=== PATIENT | male | born 1995 | race Caucasian/White ===

== ENCOUNTER 2021-03-01 14:27 | Emergency (ER) | payer OTHER ==
[2021-03-01 17:21] LABS: BASOPHIL 0.2 % (0-2); EOSINOPHIL 0.7 % (0-5); HCT 46.9 % (42.0-52.0); HGB 15.9 g/dl (13.2-18.0); LYMPHOCYTE 23.7 % (15-48); MCH 27.9 pg (25.0-31.0); MCHC 33.9 g/dL (32.0-36.0); MCV 82.4 fL (78.0-100.0); MONOCYTE 5.3 % (0-12); MPV 9.8 fL (6.0-9.5); NEUTROPHIL 69.6 % (41-80); NRBC 0; PLT 195 K/uL (150-400); RBC 5.69 M/uL (4.70-6.00); RDW 12.5 % (11.5-14.0); WBC 8.8 K/uL (4.0-10.5)
[2021-03-01 17:38] LABS: ALBUMIN 4.9 g/dL (3.4-5.0); BILIRUBIN - TOTAL 0.7 mg/dL (0.2-1.0); BUN/CREAT RATIO (CALC) 9.2 RATIO; CREATININE 0.87 mg/dL (0.67-1.17); POTASSIUM 3.7 mmol/L (3.5-5.1); TOTAL PROTEIN 7.9 g/dL (6.4-8.2)
[2021-03-01] MEDS ORDERED: NAPROXEN500 MG PO (18:32)
== END 2021-03-01 18:55 | disposition home or self-care (01) ==
LOC: FER 14:27
PROVIDERS: Emergency Medicine
DX: R07.89 Other chest pain (principal); I10 Essential (primary) hypertension; Z79.899 Other long term (current) drug therapy
CPT/HCPCS: 36415; 71045; 80053; 84484; 85025; 93005